=== PATIENT | female | born 1945 | race Caucasian/White ===

== ENCOUNTER 2021-11-15 22:41 | Inpatient (IN) | payer OTHER ==
[2021-11-15] MEDS ORDERED: SODIUM CHLORIDE 0.9% 500 ML INFUS.BAG IV ONE (23:27)
[2021-11-16 01:09] LABS: HEMATOCRIT 36.7 % (32.4-45.2); HEMOGLOBIN 12.3 GM/dL (10.7-15.3); MCH 30.3 pg (25.7-33.7); MCHC 33.6 g/dl (32.0-36.0); MEAN CELL VOLUME 90.2 fl (80-96); MEAN PLT VOLUME 8.5 fl (7.5-11.1); PLATELET COUNT 238 10^3/uL (134-434); RBC 4.07 M/mm3 (3.60-5.2); RDW 19.1 % (11.6-15.6); WHITE BLOOD COUNT 7.3 K/mm3 (4.0-10.0)
[2021-11-16 01:11] LABS: CHLORIDE 111 mmol/L (98-107); SODIUM 141 mmol/L (136-145)
[2021-11-16 01:12] LABS: CALCIUM 8.4 mg/dL (8.5-10.1)
[2021-11-16 01:13] LABS: ALBUMIN 2.9 g/dl (3.4-5.0); ANION GAP 8 MMOL/L (8-16); BLOOD UREA NITROGEN 29.6 mg/dL (7-18); CO2 22 mmol/L (21-32); GLUCOSE,RANDOM 188 mg/dL (74-106)
[2021-11-16 01:16] LABS: CREATININE 0.8 mg/dL (0.55-1.3); SGOT/AST 27 U/L (15-37); SGPT/ALT 38 U/L (13-61)
[2021-11-16 01:18] LABS: BILIRUBIN,TOTAL 0.3 mg/dL (0.2-1)
[2021-11-16 01:20] LABS: ALK PHOS 50 U/L (45-117)
[2021-11-16 01:24] LABS: EPI CELLS 4 /uL (0-25.1); HYALINE CASTS 1 /uL (0-3.1); PH,URINE 5.5 (5.0-8.0); URINE APPEARANCE CLEAR; URINE BACTERIA >9,000 /uL (0-1359); URINE BILIRUBIN NEGATIVE (NEGATIVE); URINE COLOR YELLOW; URINE GLUCOSE (UA) 1+ (NEGATIVE); URINE KETONE NEGATIVE (NEGATIVE); URINE LEUK ESTERASE 2+ (NEGATIVE); URINE NITRITE POSITIVE (NEGATIVE); URINE PROTEIN 1+ (NEGATIVE); URINE RBC 4 /uL (0-23.9); URINE WBC 380 /uL (0-25.8)
[2021-11-16 01:28] LABS: ACTIVATED PTT 24.5 SECONDS (25.2-36.5); INR 1.02 (0.83-1.09); PROTHROMBIN TIME (PATIENT) 11.7 SEC (9.7-13.0)
[2021-11-16] MEDS ORDERED: CEFTRIAXONE 1 GM in DEXTROSE 5%-WATER - 100 ML IVPB ONE (01:31)
[2021-11-16] MEDS ORDERED: CEFTRIAXONE 1 GM/50 ML BAG ONE (01:47)
[2021-11-16] MEDS ORDERED: ACETAMINOPHEN 325 MG TABLET (FP) PO PRN (03:10)
[2021-11-16 03:30] LABS: ANISOCYTOSIS 1+; MACROCYTOSIS 0
[2021-11-16] MEDS: D5-1/2NS+20 MEQ KCL - 20 MEQ/1,000 ML INFUS.BAG IV SCH ×2 (04:13→18:09)
[2021-11-16 05:09] VITALS: BMI 25.0
[2021-11-16] MEDS: LEVOTHYROXINE NA 25 MCG TABLET (FP) PO SCH (06:07)
[2021-11-16] MEDS ORDERED: levETIRAcetam 500 MG/5 ML INJECTION VIAL IVPB SCH (10:00)
[2021-11-16] MEDS ORDERED: DIVALPROEX NA *ER* EXTEND REL 500 MG TABLET.SA (FP) PO SCH ×2 (10:00)
[2021-11-16] MEDS ORDERED: CLOPIDOGREL BISULFATE 75 MG TABLET (FP) PO SCH (10:00)
[2021-11-16] MEDS: levETIRAcetam 500 MG/5 ML INJECTION VIAL IVPB SCH ×2 (10:40→21:40)
[2021-11-16] MEDS: CHOLECALCIFEROL (VIT D3) 5000 UNITS (125 MCG) CAP PO SCH (10:40)
[2021-11-16] MEDS: PANTOPRAZOLE 40 MG TABLET PO SCH (10:41)
[2021-11-16] MEDS: MULTIVITAMINS THER W-MINERALS COMBO TABLET (FP) PO SCH (10:41)
[2021-11-16] MEDS: VALSARTAN 160 MG TABLET PO SCH ×2 (10:41→21:40)
[2021-11-16] MEDS: MEGESTROL ACETATE 400 MG/10 ML UNIT DOSE CUP PO SCH (10:41)
[2021-11-16] MEDS: POLYETHYLENE GLYCOL (HEALTHYLAX) 3350 17 GM PACKET PO SCH (10:41)
[2021-11-16] MEDS: ENOXAPARIN NA (PORCINE) 40 MG/0.4 ML DISP.SYRIN SQ SCH (10:42)
[2021-11-16] MEDS: amLODIPine BESYLATE 10 MG TABLET (FP) PO SCH (10:43)
[2021-11-16] MEDS: MIRTAZAPINE 15 MG TABLET (FP) PO SCH (21:40)
[2021-11-16] MEDS: DIVALPROEX NA *ER* EXTEND REL 250 MG TABLET.SA PO SCH (21:47)
[2021-11-17] MEDS: D5-1/2NS+20 MEQ KCL - 20 MEQ/1,000 ML INFUS.BAG IV SCH ×2 (06:13→20:50)
[2021-11-17] MEDS: LEVOTHYROXINE NA 25 MCG TABLET (FP) PO SCH (06:13)
[2021-11-17 09:44] LABS: HEMATOCRIT 36.4 % (32.4-45.2); HEMOGLOBIN 12.1 GM/dL (10.7-15.3); MCHC 33.1 g/dl (32.0-36.0); MEAN CELL VOLUME 90.7 fl (80-96); MEAN PLT VOLUME 8.7 fl (7.5-11.1); PLATELET COUNT 227 10^3/uL (134-434); RBC 4.01 M/mm3 (3.60-5.2); RDW 18.5 % (11.6-15.6); WHITE BLOOD COUNT 4.9 K/mm3 (4.0-10.0)
[2021-11-17 10:00] LABS: BLOOD UREA NITROGEN 11.6 mg/dL (7-18); CALCIUM 8.5 mg/dL (8.5-10.1)
[2021-11-17 10:03] LABS: CREATININE 0.6 mg/dL (0.55-1.3)
[2021-11-17] MEDS: VALSARTAN 160 MG TABLET PO SCH ×2 (10:36→21:25)
[2021-11-17] MEDS: MULTIVITAMINS THER W-MINERALS COMBO TABLET (FP) PO SCH (10:36)
[2021-11-17] MEDS: amLODIPine BESYLATE 10 MG TABLET (FP) PO SCH (10:36)
[2021-11-17] MEDS: PANTOPRAZOLE 40 MG TABLET PO SCH (10:36)
[2021-11-17] MEDS: ENOXAPARIN NA (PORCINE) 40 MG/0.4 ML DISP.SYRIN SQ SCH (10:36)
[2021-11-17] MEDS: POLYETHYLENE GLYCOL (HEALTHYLAX) 3350 17 GM PACKET PO SCH (10:36)
[2021-11-17] MEDS: MEGESTROL ACETATE 400 MG/10 ML UNIT DOSE CUP PO SCH (10:37)
[2021-11-17] MEDS: DIVALPROEX NA *ER* EXTEND REL 250 MG TABLET.SA PO SCH ×2 (10:37→21:25)
[2021-11-17] MEDS: levETIRAcetam 500 MG/5 ML ORAL SOLUTION (UNIT-DOSE CUPS) PO SCH ×2 (10:38→21:26)
[2021-11-17] MEDS: CHOLECALCIFEROL (VIT D3) 5000 UNITS (125 MCG) CAP PO SCH (10:38)
[2021-11-17 10:42] LABS: ANISOCYTOSIS 0; HELMET CELLS 0; HOWELL-JOLLY BODIES 0; MACROCYTOSIS 0; OVALOCYTE 0; ROULEAU 0; SICKELED CELLS 0; TARGET CELLS 0; TEAR DROP CELLS 0; TOXIC GRANULATION 0
[2021-11-17] MEDS ORDERED: cefTRIAXone SODIUM 1 GM VIAL ONE (15:44)
[2021-11-17] MEDS ORDERED: DEXTROSE 5%-WATER - 50 ML IVPB ONE (15:44)
[2021-11-17] MEDS: CEFTRIAXONE 1 GM in DEXTROSE 5%-WATER - 50 ML IVPB SCH (15:45)
[2021-11-17] MEDS: MIRTAZAPINE 15 MG TABLET (FP) PO SCH (21:25)
[2021-11-18] MEDS: D5-1/2NS+20 MEQ KCL - 20 MEQ/1,000 ML INFUS.BAG IV SCH ×3 (06:13→18:40)
[2021-11-18] MEDS: LEVOTHYROXINE NA 25 MCG TABLET (FP) PO SCH (06:13)
[2021-11-18 08:43] LABS: HEMATOCRIT 33.8 % (32.4-45.2); HEMOGLOBIN 11.3 GM/dL (10.7-15.3); MCH 30.1 pg (25.7-33.7); MCHC 33.5 g/dl (32.0-36.0); MEAN CELL VOLUME 89.9 fl (80-96); MEAN PLT VOLUME 8.4 fl (7.5-11.1); PLATELET COUNT 218 10^3/uL (134-434); RBC 3.76 M/mm3 (3.60-5.2); RDW 18.7 % (11.6-15.6); WHITE BLOOD COUNT 4.5 K/mm3 (4.0-10.0)
[2021-11-18 09:06] LABS: BLOOD UREA NITROGEN 10.5 mg/dL (7-18); CALCIUM 8.3 mg/dL (8.5-10.1)
[2021-11-18 09:10] LABS: CREATININE 0.6 mg/dL (0.55-1.3)
[2021-11-18 09:44] LABS: ANISOCYTOSIS 1+; MACROCYTOSIS 0; PLATELET ESTIMATE NORMAL
[2021-11-18] MEDS ORDERED: cefTRIAXone SODIUM 1 GM VIAL ONE (12:08)
[2021-11-18] MEDS ORDERED: DEXTROSE 5%-WATER - 50 ML IVPB ONE (12:08)
[2021-11-18] MEDS: DIVALPROEX NA *ER* EXTEND REL 250 MG TABLET.SA PO SCH ×2 (12:16→22:05)
[2021-11-18] MEDS: MULTIVITAMINS THER W-MINERALS COMBO TABLET (FP) PO SCH (12:16)
[2021-11-18] MEDS: amLODIPine BESYLATE 10 MG TABLET (FP) PO SCH (12:16)
[2021-11-18] MEDS: MEGESTROL ACETATE 400 MG/10 ML UNIT DOSE CUP PO SCH (12:17)
[2021-11-18] MEDS: POLYETHYLENE GLYCOL (HEALTHYLAX) 3350 17 GM PACKET PO SCH ×2 (12:17→22:06)
[2021-11-18] MEDS: PANTOPRAZOLE 40 MG TABLET PO SCH (12:17)
[2021-11-18] MEDS: CHOLECALCIFEROL (VIT D3) 5000 UNITS (125 MCG) CAP PO SCH (12:17)
[2021-11-18] MEDS: levETIRAcetam 500 MG/5 ML ORAL SOLUTION (UNIT-DOSE CUPS) PO SCH ×2 (12:17→22:05)
[2021-11-18] MEDS: CEFTRIAXONE 1 GM in DEXTROSE 5%-WATER - 50 ML IVPB SCH (12:17)
[2021-11-18] MEDS: ENOXAPARIN NA (PORCINE) 40 MG/0.4 ML DISP.SYRIN SQ SCH (12:17)
[2021-11-18] MEDS: VALSARTAN 160 MG TABLET PO SCH ×2 (12:17→22:06)
[2021-11-18] MEDS: DOCUSATE SODIUM 100 MG CAPSULE (FP) PO SCH ×2 (15:06→22:06)
[2021-11-18] MEDS: MIRTAZAPINE 15 MG TABLET (FP) PO SCH (22:06)
[2021-11-19] MEDS: DOCUSATE SODIUM 100 MG CAPSULE (FP) PO SCH ×2 (05:46→13:24)
[2021-11-19] MEDS: LEVOTHYROXINE NA 25 MCG TABLET (FP) PO SCH (06:16)
[2021-11-19 09:25] LABS: HEMATOCRIT 32.1 % (32.4-45.2); HEMOGLOBIN 10.9 GM/dL (10.7-15.3); MCH 30.6 pg (25.7-33.7); MCHC 33.9 g/dl (32.0-36.0); MEAN CELL VOLUME 90.2 fl (80-96); MEAN PLT VOLUME 8.4 fl (7.5-11.1); PLATELET COUNT 222 10^3/uL (134-434); RBC 3.56 M/mm3 (3.60-5.2); RDW 18.9 % (11.6-15.6); WHITE BLOOD COUNT 4.3 K/mm3 (4.0-10.0)
[2021-11-19 09:50] LABS: CALCIUM 8.2 mg/dL (8.5-10.1)
[2021-11-19 09:51] LABS: BLOOD UREA NITROGEN 20.7 mg/dL (7-18)
[2021-11-19 09:54] LABS: CREATININE 0.8 mg/dL (0.55-1.3)
[2021-11-19] MEDS ORDERED: PNEUMOC 20-VAL CONJ-DIP CRM/PF 0.5 ML SYRINGE IM ONE (10:00)
[2021-11-19] MEDS ORDERED: CEFUROXIME AXETIL 500 MG TABLET PO SCH (10:00)
[2021-11-19 10:37] VITALS: BP 134/88; PULSE 75; TEMP 98.2
[2021-11-19] MEDS: MEGESTROL ACETATE 400 MG/10 ML UNIT DOSE CUP PO SCH (10:38)
[2021-11-19] MEDS: VALSARTAN 160 MG TABLET PO SCH (10:38)
[2021-11-19] MEDS: MULTIVITAMINS THER W-MINERALS COMBO TABLET (FP) PO SCH (10:38)
[2021-11-19] MEDS: CHOLECALCIFEROL (VIT D3) 5000 UNITS (125 MCG) CAP PO SCH (10:39)
[2021-11-19] MEDS: amLODIPine BESYLATE 10 MG TABLET (FP) PO SCH (10:39)
[2021-11-19] MEDS: levETIRAcetam 500 MG/5 ML ORAL SOLUTION (UNIT-DOSE CUPS) PO SCH (10:39)
[2021-11-19] MEDS: PANTOPRAZOLE 40 MG TABLET PO SCH (10:39)
[2021-11-19] MEDS: POLYETHYLENE GLYCOL (HEALTHYLAX) 3350 17 GM PACKET PO SCH (10:41)
[2021-11-19] MEDS: DIVALPROEX NA *ER* EXTEND REL 250 MG TABLET.SA PO SCH (10:42)
[2021-11-19] MEDS: ENOXAPARIN NA (PORCINE) 40 MG/0.4 ML DISP.SYRIN SQ SCH (10:43)
[2021-11-19 11:13] LABS: ANISOCYTOSIS 0; HELMET CELLS 0; HOWELL-JOLLY BODIES 0; MACROCYTOSIS 0; OVALOCYTE 0; ROULEAU 0; SICKELED CELLS 0; TARGET CELLS 0; TEAR DROP CELLS 0; TOXIC GRANULATION 0
== END 2021-11-19 15:27 | DRG 100 ==
LOC: JER 22:41 → JERBED 11-16 01:50 → J5S 11-16 03:53
PROVIDERS: ADMIT Internal Medicine; ATTEND Internal Medicine
DX: R56.9 Unspecified convulsions (principal); R53.2 Functional quadriplegia; N39.0 Urinary tract infection, site not specified; F03.90 Unspecified dementia, unspecified severity, without behavioral disturbance, psychotic disturbance, mood disturbance, and anxiety; E03.9 Hypothyroidism, unspecified; I10 Essential (primary) hypertension; E86.0 Dehydration; B96.20 Unspecified Escherichia coli [E. coli] as the cause of diseases classified elsewhere; K59.00 Constipation, unspecified; F41.8 Other specified anxiety disorders; G47.00 Insomnia, unspecified
CPT/HCPCS: 0241U-QW; 36415; 70450-TC; 71045-TC-FY; 74018-TC-FY; 74176-TC; 80048; 80053; 80164; 80177; 81003; 82550; 82553; 82962; 83036; 83605; 84443; 85025; 85610; 85730; 86850; 86900; 86901; 87040; 87086; 87186; 90677; 93005; 93010; 97161-GP; 99285-25